=== PATIENT | female | born 1980 | race Caucasian/White ===

== ENCOUNTER 2022-12-28 06:26 | Day surgery (SDC) | payer OTHER, SELFPAY ==
[2022-12-28 08:07] VITALS: BMI 25.8
[2022-12-28 08:08] VITALS: BMI 25.8
[2022-12-28 08:09] VITALS: BP 131/78
[2022-12-28 08:17] LABS: HCG, Urine Qualitative Screen Negative
[2022-12-28] MEDS: NORMOSOL-R/PLASMALYTE-A 1000 IV (08:35)
[2022-12-28 09:56] VITALS: BP 114/81
[2022-12-28 10:00] VITALS: BP 111/75
[2022-12-28 10:15] VITALS: BP 109/75
[2022-12-28 10:30] VITALS: BP 113/77
== END 2022-12-28 10:53 | disposition home or self-care (01) ==
LOC: SDS 06:26
PROVIDERS: ATTENDING PHYSICIAN Urology
DX: N39.41 Urge incontinence (principal); R33.9 Retention of urine, unspecified; G35 Multiple sclerosis
CPT/HCPCS: 64590; 64561; 72170; 76000; 81025; C1767; C1778; C1787; L8681

== ENCOUNTER → 2023-05-20 06:38 | Day surgery (SDC) | payer OTHER, SELFPAY | LOC: GI 06:38 | PROVIDERS: ATTENDING PHYSICIAN Internal Medicine | DX: R13.10 Dysphagia, unspecified (principal); R12 Heartburn; K44.9 Diaphragmatic hernia without obstruction or gangrene | CPT/HCPCS: 43249 ==

== ENCOUNTER → 2023-11-09 09:14 | Outpatient (REF) | payer OTHER, SELFPAY | LOC: PAVMRI 09:14 | PROVIDERS: ATTENDING PHYSICIAN Internal Medicine; FAMILY PHYSICIAN Nurse Practitioner | DX: M54.59 Other low back pain (principal); M54.16 Radiculopathy, lumbar region; M51.36 Other intervertebral disc degeneration, lumbar region | CPT/HCPCS: 72148 ==

== ENCOUNTER → 2024-02-29 10:37 | Outpatient (REF) | payer OTHER, SELFPAY | LOC: RAD 10:37 | PROVIDERS: ATTENDING PHYSICIAN Internal Medicine; FAMILY PHYSICIAN Nurse Practitioner | DX: K21.9 Gastro-esophageal reflux disease without esophagitis (principal) | CPT/HCPCS: 74221 ==

== ENCOUNTER → 2024-03-08 06:18 | Day surgery (SDC) | payer OTHER, SELFPAY | LOC: GI 06:18 | PROVIDERS: ATTENDING PHYSICIAN Internal Medicine | DX: K31.89 Other diseases of stomach and duodenum (principal); R13.10 Dysphagia, unspecified | CPT/HCPCS: 43249; 43239; 88305; 88342 ==

== ENCOUNTER → 2024-03-13 09:56 | Outpatient (REF) | payer OTHER, SELFPAY | LOC: RAD 09:56 | PROVIDERS: ATTENDING PHYSICIAN Internal Medicine; FAMILY PHYSICIAN Nurse Practitioner | DX: K31.89 Other diseases of stomach and duodenum (principal) | CPT/HCPCS: 74246; 74248 ==